=== PATIENT | male | born 1975 | race Caucasian/White ===

== ENCOUNTER 2018-07-10 18:42 | Emergency (ER) | payer BC ==
[2018-07-10 19:09] VITALS: BP 131/82
--- NOTE | 2018-07-10 19:09 | UC ---
Throat Pain/Nasal David HPI - HPI Summary HPI Summary: Patient presents with 2 weeks of progressive postnasal drip. Patient now with cough producing brown sputum. Patient states he's had some chills. No fevers. Patient with progressive left ear pain. Patient denies sore throat. Patient states that a history of postnasal drip but this feels different. Patient has used cough medication without relief. Patient does use CPAP machine at night and does not humidify. She denies sick contacts. Patient with slightly decreased appetite. No nausea/vomiting/diarrhea. Patient does not smoke cigarettes and does not work with fumes. Patient's medications reviewed this visit. - History of Current Complaint Chief Complaint: UCGeneralIllness Stated Complaint: ST/CONGESTION Time Seen by Provider: 07/10/18 19:08 Onset/Duration: Gradual Onset Severity: Mild Pain Intensity: 0 Pain Scale Used: 0-10 Numeric Cough: Productive Associated Signs & Symptoms: Positive: Negative - Allergies/Home Medications Allergies/Adverse Reactions: Allergies Allergy/AdvReac Type Severity Reaction Status Date / Time Penicillins Allergy Unknown Verified 07/10/18 19:09 Reaction Details PMH/Surg Hx/FS Hx/Imm Hx Previously Healthy: Yes - Surgical History Surgical History: Yes Surgery Procedure, Year, and Place: VASECTOMY - Family History Known Family History: Positive: Cardiac Disease, Hypertension - Social History Occupation: Employed Full-time Lives: With Family Alcohol Use: Occasionally Substance Use Type: None Smoking Status (MU): Former Smoker Type: Cigarettes Have You Smoked in the Last Year: No - Immunization History Hx Tetanus, Diphtheria Vaccination: Yes Vaccination Up to Date: Yes Review of Systems Constitutional: Negative ENT: Nasal Discharge, Sinus Congestion All Other Systems Reviewed And Are Negative: Yes Physical Exam - Summary Physical Exam Summary: Vital Signs Reviewed: Yes A+Ox3, no distress Eyes: Conjunctiva Clear, JESSICA. EOM intact and full ENT: Hearing grossly normal left TM with fluid and mild erythema. Right TM within normal limits. Patient's turbinates are inflamed and boggy. Patient with thick postnasal drip. Patient without pain with palpation of the sinuses. Patient with no TMJ pain. Patient with no exudate. Erythema. Uvula midline. Symmetry of the oropharynx. Neck: Positive: Supple Respiratory: Positive: No respiratory distress, No accessory muscle use + CTA throughout no w/r Cardiovascular: RRR nl s1, s2 no m/r CBT <2 sec abd soft + BS nt/nd no guarding, no distension Musculoskeletal Exam: GIANG x 4 without difficulty Strength Intact, ROM Intact Neurological: Positive: Alert, + sensation throughout Psychological: Positive: Normal Response To Family Skin: Positive: no rash, no ecchymosis Triage Information Reviewed: Yes Vital Signs: Initial Vital Signs Temp 97.7 F 07/10/18 19:07 Pulse 101 07/10/18 19:07 Resp 16 07/10/18 19:07 BP 131/82 07/10/18 19:07 Pulse Ox 97 07/10/18 19:07 Throat Pain/Nasal Course/Dx - Course Course Of Treatment: Patient presents for 2 weeks progressive postnasal drip. Patient now the cough producing brown rust-colored sputum. Patient denies any wheeze. Patient has shortness of breath. Patient states she's feeling tired and having tactile chills. No documented fever. Patient taking cough medicine without relief. Patient does wear CPAP at night. On exam, patient with turbinates boggy and sick postnasal drip. Discussed with patient. Recommend patient take Flonase as well as decongestant. Advised to decongestant in the morning. Patient does not have a history of hypertension. Also recommended patient stay well-hydrated. Clean a CPAP machine. We'll also give patient a prescription for Z-Christian (PCN allergic) Patient prepping to travel out of town and concern that he is not getting better. Return precautions discussed patient comfortable in agreement with plan. - Differential Dx/Diagnosis Provider Diagnoses: rhinosinusitis Discharge - Sign-Out/Discharge Documenting (check all that apply): Patient Departure - Discharge Plan Condition: Stable Disposition: HOME Prescriptions: Azithromycin TAB* [Zithromax TAB (Z-CHRISTIAN) 250 mg #6 tabs] 2 tab PO .TODAY, THEN 1 DAILY #1 christian Fluticasone NASAL SPRAY 50MCG* [Flonase NASAL SPRAY 50MCG*] 2 spray BOTH NARES DAILY #1 btl Patient Education Materials: Rhinosinusitis (ED) Referrals: Ynes LUQUEPSri [Nurse Practitioner] - Additional Instructions: - Stay well hydrated. Drink plenty of non-alcoholic, non-caffinated beverages. - Alternate ibuprofen (Advil, Motrin) 600mg and Tylenol every 3 hours for pain or fever. Take with food. Do NOT take for more than 4-5 days. - These infections are spread by secretions - do NOT share eating or drinking utensils - clean items you share with other people such as cell phones, computer mouse, TV remote, computer tablets,etc. Once you have been antibiotics for 2 days, change your toothbrush and your pillowcase. Make sure to clean your CPAP maching and tubing - get plenty of restful sleep - Considering humidifying the air in your CPAP machine - okay to take over the counter decongestant (Claritin-D, Cassia-D, Zyrtec-D, Sudafed) This medication may make you feel very alert - it is recommended you take in the morning - use nasal spray as prescribed - contact your doctor or return with questions or concerns - Billing Disposition and Condition Condition: STABLE Disposition: Home
== END 2018-07-10 19:50 | disposition home or self-care (01) ==
LOC: UCCORT 18:42
DX: Z88.0 Allergy status to penicillin (principal); J32.9 Chronic sinusitis, unspecified
CPT/HCPCS: 99212; G0463